=== PATIENT | male | born 1990 | race Caucasian/White ===

== ENCOUNTER 2023-10-24 09:44 | Outpatient (CLI) | payer BC ==
[2023-10-25 08:33] LABS: LUTEINIZING HORMONE 4.6 mIU/mL (1.7-8.6); PROLACTIN 13.8 ng/mL (4.0-15.2)
== END 2023-10-24 23:59 | disposition home or self-care (01) ==
LOC: LAB 09:44
PROVIDERS: ATTEND Physician Assistant
DX: R53.83 Other fatigue (principal); E29.1 Testicular hypofunction
CPT/HCPCS: 36415; 83001; 83002; 84146